=== PATIENT | male | born 1965 | race Caucasian/White ===

== ENCOUNTER → 2019-03-06 | Outpatient (CLI) | payer MEDICAID ==
--- NOTE | 2019-03-06 14:17 | US ---
EXAM DESCRIPTION: Venous,Lower Extremity LT: ULTRASOUND. CLINICAL HISTORY: Localized edema COMPARISON: None Available. TECHNIQUE: Gonsales-scale and doppler sonographic evaluation of the deep venous system of the left lower extremity. FINDINGS: Doppler evaluation shows normal color flow and normal phasicity and augmentation of the left common femoral vein, femoral vein, popliteal vein, greater saphenous vein, peroneal, and posterior tibial vein. The left lower extremity deep veins were completely compressible; normal occlusion with transducer pressure. Gonsales-scale survey showed no echogenic thrombus within these veins. 2.8 x 1.8 cm lymph node with small hypoechoic capsule and large echogenic center which is vascular. A second lymph node has a thicker hypoechoic capsule with smaller echogenic center measuring 2.8 x 0.8 cm. IMPRESSION: 1. Duplex ultrasound evaluation of the left lower extremity deep venous system showing no evidence of thrombosis. 2. Large nonreactive lymph node and slightly smaller reactive lymph node in the left groin. Electronically signed by: Ronnie Ching MD 03/06/2019 2:15 PM CDT
--- NOTE | 2019-03-06 16:05 | CT ---
EXAM DESCRIPTION: CT ABDOMEN AND PELVIS WITH CONTRAST CLINICAL HISTORY: ABNORMAL FINDINGS ON DIAGNOSTIC LIMBS COMPARISON: None Available. TECHNIQUE: CT of the abdomen and pelvis are performed during IV bolus administration of routine adult dose of nonionic iodinated IV contrast. Oral contrast media is administered as well. FINDINGS: In the lower chest, the lung bases are clear. Heart size is normal. CT abdomen Small accessory splenule. No calcified stones in the contracted gallbladder. No renal or ureteral calculi. Tiny cyst in the upper anterior right renal cortex. Small cyst in the lower pole of the right kidney. Moderate amount of fecal material in the transverse colon. The liver, spleen, pancreas, gallbladder, adrenal glands, stomach and kidneys are otherwise unremarkable in appearance. No inflammation around the pancreas. No renal stones or hydronephrosis. No bowel dilatation to suggest obstruction. No free air or free fluid. CT pelvis Appendix appears normal. No inflammation around the cecum or terminal ileum or sigmoid colon. Bladder and distal ureters are negative for stones. Normal enhancement of pelvic vessels. No inguinal or lower pelvic adenopathy. Normal appearance of prostate and seminal vesicles. Orthopedic hardware in the lower lumbosacral spine with TENS unit in place. Coronal and sagittal reformatted images confirm the findings. IMPRESSION: No acute upper abdominal process. No acute process in the pelvis. This exam was performed according to our departmental dose-optimization program, which includes automated exposure control, adjustment of the mA and/or kV according to patient size and/or use of iterative reconstruction technique. Total DLP equals 986.25 mGycm. Electronically signed by: Jean Claude Arora MD 03/06/2019 4:03 PM CDT
== END ==
LOC: LAB.O 13:05
PROVIDERS: ATTEND Nurse Practitioner Family
DX: R93.6 Abnormal findings on diagnostic imaging of limbs (principal); R60.0 Localized edema

== ENCOUNTER → 2019-03-18 | Outpatient (CLI) | payer MEDICAID | LOC: ECHO 09:58 | PROVIDERS: ATTEND Nurse Practitioner Family | DX: R60.0 Localized edema (principal) ==